=== PATIENT | female | born 1985 | race Caucasian/White ===

== ENCOUNTER 2021-05-09 16:11 | Inpatient (IN) | payer OTHER ==
[~2021-05-09] VITALS: Ht 157.5 cm; Wt 66.0 kg
--- NOTE | 2021-05-09 16:21 | NUR ---
PT BIB EMS FROM [place]. PT WENT TO ER THERE THIS MORNING FOR "FEELING TINGLY ALL OVER X 2 DAYS". PT WAS FOUND TO HAVE ROOM AIR SAT IN THE 70S. AND WAS PLACED ON HIGH FLOW + NON REBREATHER AND HER SAT WAS IN THE HIGH 80S TO 90. PT WAS FOUND TO HAVE CARDIOMEGALY AND A TROP OF 0.83. 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 PT RESTING IN IN [facility]. EKG COMPLETE. RT HAS PLACED PT ON OPTI FLOW AND HER SAT IS 90% NOW. BEDSIDE FOR ASSESMENT
--- NOTE | 2021-05-09 17:00 | NUR ---
REPORT FROM LISA, ASSUME CARE OF PT AT THIS TIME. PT STATES SHE'S FEELING BETTER, BREATHING EASIER AT THIS TIME. VS UPDATED IN COMPUTER. CALL LIGHT WITHIN REACH.
[2021-05-09] MEDS ORDERED: ENALAPRILAT 1.25 MG/ML, 2ML IVPush PRN (17:30)
[2021-05-09] MEDS ORDERED: ACETAMINOPHEN 325 MG TABLET PO PRN (17:30)
[2021-05-09] MEDS ORDERED: ONDANSETRON 2MG/ML, 2ML IVPush PRN (17:30)
[2021-05-09] MEDS ORDERED: ONDANSETRON ODT 4 MG PO PRN (17:30)
[2021-05-09] MEDS ORDERED: DOCUSATE 100 MG CAPSULE PO PRN (17:30)
[2021-05-09] MEDS ORDERED: GUAIFENESIN/COD200MG-20MG/10ML LIQUID PO PRN (17:30)
[2021-05-09] MEDS ORDERED: HYDROcodone/APAP 5/325 TABLET PO PRN (17:30)
[2021-05-09] MEDS ORDERED: DIPHENHYDRAMINE 25 MG CAPSULE PO PRN (17:30)
[2021-05-09] MEDS ORDERED: morphine SULFATE 10 MG/ML, 1ML IVPush PRN (17:30)
[2021-05-09] MEDS ORDERED: KETOROLAC 30 MG/1 ML IV PRN (17:30)
[2021-05-09 19:28] VITALS: BP 154/61
[2021-05-09] MEDS: CEFTRIAXONE 1,000 MG in DEXTROSE 5% 50 ML IVPB SCH (19:41)
[2021-05-09] MEDS: AZITHROMYCIN 500 MG in SODIUM CHLORIDE 0.9% 250 ML IV SCH (20:47)
[2021-05-09] MEDS: FAMOTIDINE 20 MG/2 ML IVPush SCH (20:47)
[2021-05-09] MEDS: ENOXAPARIN 40 MG/0.4 ML SQ SCH (20:47)
[2021-05-09] MEDS ORDERED: LORazepam 1MG TABLET PO ONE (21:00)
[2021-05-09 22:14] LABS: TROPONIN I 0.843 ng/mL (0.000-0.045)
[2021-05-10 00:03] VITALS: BP 148/70
[2021-05-10 05:28] LABS: BASOPHILS % (AUTO) 0 % (0-1); EOSINOPHILS % (AUTO) 0 % (1-7); LYMPHOCYTES % (AUTO) 17 % (22-44); MEAN CORPUSCULAR HEMOGLOBIN 29.4 pg (27.0-34.8); MEAN CORPUSCULAR HGB CONC 32.2 g/dL (32.4-35.8); MEAN PLATELET VOLUME 9.9 fL (7.4-10.4); MONOCYTES % (AUTO) 6 % (2-9); NEUTROPHILS % (AUTO) 77 % (42-75); PLATELET COUNT 180 x10^3/uL (130-400); RED BLOOD COUNT 5.31 x10^6/uL (3.82-5.3); RED CELL DISTRIBUTION WIDTH 23.7 % (9.6-15.2)
[2021-05-10 05:38] LABS: CHLORIDE 112 mmol/L (98-107)
[2021-05-10 05:48] LABS: ALANINE AMINOTRANSFERASE 19 U/L (12-78); ALBUMIN 2.9 g/dL (3.4-5.0); ALKALINE PHOSPHATASE 75 U/L (45-117); ANION GAP 10 mmol/L (5-15); BILIRUBIN,TOTAL 0.8 mg/dL (0.2-1.0); CALCIUM 8.3 mg/dL (8.5-10.1); CREATININE 1.05 mg/dL (0.55-1.02); TOTAL PROTEIN 6.3 g/dL (6.4-8.2); TROPONIN I 0.768 ng/mL (0.000-0.045)
[2021-05-10 08:47] VITALS: BP 145/93
[2021-05-10] MEDS: FAMOTIDINE 20 MG/2 ML IVPush SCH ×2 (10:24→20:48)
[2021-05-10] MEDS: DEXAMETHASONE 4 MG/ML, 1ML IVPush SCH (10:24)
[2021-05-10 13:56] VITALS: BP 134/85
[2021-05-10] MEDS: AZITHROMYCIN 500 MG in SODIUM CHLORIDE 0.9% 250 ML IV SCH (17:56)
[2021-05-10] MEDS: BUMETANIDE 1 MG TABLET PO SCH (18:25)
[2021-05-10 19:31] VITALS: BP 136/87
[2021-05-10] MEDS: CEFTRIAXONE 1,000 MG in DEXTROSE 5% 50 ML IVPB SCH (19:41)
[2021-05-10] MEDS: ENOXAPARIN 40 MG/0.4 ML SQ SCH (19:41)
[2021-05-10] MEDS: LORazepam 1MG TABLET PO PRN (21:48)
[2021-05-11] MEDS ORDERED: CITA20TA6 PO (00:20)
[2021-05-11 01:50] VITALS: BP 122/69
[2021-05-11 07:51] VITALS: BP 147/78
[2021-05-11] MEDS: SPIRONOLACTONE 25 MG TABLET PO SCH (09:45)
[2021-05-11] MEDS: BUMETANIDE 1 MG TABLET PO SCH (09:45)
[2021-05-11] MEDS: FAMOTIDINE 20 MG/2 ML IVPush SCH ×2 (09:46→20:32)
[2021-05-11] MEDS: DEXAMETHASONE 4 MG/ML, 1ML IVPush SCH (09:46)
[2021-05-11 14:00] VITALS: BP 135/91
[2021-05-11] MEDS: AZITHROMYCIN 500 MG in SODIUM CHLORIDE 0.9% 250 ML IV SCH (17:19)
[2021-05-11] MEDS: LORazepam 1MG TABLET PO PRN (17:52)
[2021-05-11] MEDS: ENOXAPARIN 40 MG/0.4 ML SQ SCH (19:33)
[2021-05-11] MEDS: CEFTRIAXONE 1,000 MG in DEXTROSE 5% 50 ML IVPB SCH (19:33)
[2021-05-11 19:57] VITALS: BP 131/89
[2021-05-11] MEDS: LOSARTAN 25MG TABLET PO SCH (20:32)
[2021-05-12 01:29] VITALS: BP 124/78
[2021-05-12 07:49] VITALS: BP 124/76
[2021-05-12] MEDS: DEXAMETHASONE 4 MG/ML, 1ML IVPush SCH (09:58)
[2021-05-12] MEDS: BUMETANIDE 1 MG TABLET PO SCH (09:59)
[2021-05-12] MEDS: LOSARTAN 25MG TABLET PO SCH ×2 (09:59→20:24)
[2021-05-12] MEDS: FAMOTIDINE 20 MG/2 ML IVPush SCH (10:00)
[2021-05-12] MEDS: SPIRONOLACTONE 25 MG TABLET PO SCH (10:00)
[2021-05-12 13:50] VITALS: BP 138/94
[2021-05-12] MEDS: AZITHROMYCIN 500 MG in SODIUM CHLORIDE 0.9% 250 ML IV SCH (18:17)
[2021-05-12] MEDS: CEFTRIAXONE 1,000 MG in DEXTROSE 5% 50 ML IVPB SCH (19:47)
[2021-05-12] MEDS: ENOXAPARIN 40 MG/0.4 ML SQ SCH (19:47)
[2021-05-12 20:10] VITALS: BP 129/86
[2021-05-12] MEDS: FAMOTIDINE 20 MG TABLET PO SCH (20:24)
[2021-05-13 02:00] VITALS: BP 131/86
[2021-05-13 05:40] LABS: BASOPHILS % (AUTO) 1 % (0-1); EOSINOPHILS % (AUTO) 0 % (1-7); LYMPHOCYTES % (AUTO) 19 % (22-44); MEAN CORPUSCULAR HGB CONC 32.2 g/dL (32.4-35.8); MEAN PLATELET VOLUME 10.1 fL (7.4-10.4); MONOCYTES % (AUTO) 7 % (2-9); NEUTROPHILS % (AUTO) 73 % (42-75); PLATELET COUNT 172 x10^3/uL (130-400); RED BLOOD COUNT 6.05 x10^6/uL (3.82-5.3); RED CELL DISTRIBUTION WIDTH 23.1 % (9.6-15.2)
[2021-05-13 05:55] LABS: ALBUMIN 2.7 g/dL (3.4-5.0); CALCIUM 8.3 mg/dL (8.5-10.1); CHLORIDE 107 mmol/L (98-107)
[2021-05-13 06:01] LABS: ALANINE AMINOTRANSFERASE 18 U/L (12-78); ALKALINE PHOSPHATASE 73 U/L (45-117); ANION GAP 5 mmol/L (5-15); BILIRUBIN,TOTAL 0.8 mg/dL (0.2-1.0); CREATININE 0.94 mg/dL (0.55-1.02)
[2021-05-13 07:37] VITALS: BP 150/97
[2021-05-13] MEDS: SPIRONOLACTONE 25 MG TABLET PO SCH (10:25)
[2021-05-13] MEDS: FAMOTIDINE 20 MG TABLET PO SCH ×2 (10:25→20:10)
[2021-05-13] MEDS: LOSARTAN 25MG TABLET PO SCH ×2 (10:26→20:10)
[2021-05-13] MEDS: BUMETANIDE 1 MG TABLET PO SCH (10:26)
[2021-05-13] MEDS: DEXAMETHASONE 4 MG/ML, 1ML IVPush SCH (10:26)
[2021-05-13 13:50] VITALS: BP 134/94
[2021-05-13] MEDS: LORazepam 1MG TABLET PO PRN (16:20)
[2021-05-13] MEDS: methylPREDNISolone SOD SUCC 40 MG/ML IV SCH (17:37)
[2021-05-13] MEDS: AZITHROMYCIN 500 MG in SODIUM CHLORIDE 0.9% 250 ML IV SCH (17:38)
[2021-05-13 19:18] VITALS: BP 125/87
[2021-05-13] MEDS: CEFTRIAXONE 1,000 MG in DEXTROSE 5% 50 ML IVPB SCH (19:31)
[2021-05-13] MEDS: ENOXAPARIN 40 MG/0.4 ML SQ SCH (19:32)
[2021-05-14] MEDS: methylPREDNISolone SOD SUCC 40 MG/ML IV SCH ×2 (00:51→09:03)
[2021-05-14 01:11] VITALS: BP 136/92
[2021-05-14 07:29] VITALS: BP 142/98
[2021-05-14] MEDS: FAMOTIDINE 20 MG TABLET PO SCH ×2 (09:02→20:32)
[2021-05-14] MEDS: SPIRONOLACTONE 25 MG TABLET PO SCH (09:03)
[2021-05-14] MEDS: BUMETANIDE 1 MG TABLET PO SCH (09:03)
[2021-05-14] MEDS: LOSARTAN 25MG TABLET PO SCH (09:03)
[2021-05-14 13:27] VITALS: BP 141/98
[2021-05-14] MEDS: ENOXAPARIN 40 MG/0.4 ML SQ SCH (18:31)
[2021-05-14 18:45] VITALS: BP 133/92
[2021-05-15 00:08] VITALS: BP 131/89
[2021-05-15 06:10] LABS: BASOPHILS % (AUTO) 0 % (0-1); EOSINOPHILS % (AUTO) 0 % (1-7); LYMPHOCYTES % (AUTO) 14 % (22-44); MEAN CORPUSCULAR HEMOGLOBIN 28.6 pg (27.0-34.8); MEAN CORPUSCULAR HGB CONC 32.1 g/dL (32.4-35.8); MEAN PLATELET VOLUME 10.2 fL (7.4-10.4); MONOCYTES % (AUTO) 6 % (2-9); NEUTROPHILS % (AUTO) 79 % (42-75); PLATELET COUNT 162 x10^3/uL (130-400); RED CELL DISTRIBUTION WIDTH 23.2 % (9.6-15.2)
[2021-05-15 06:15] LABS: ANION GAP 3 mmol/L (5-15); CALCIUM 8.5 mg/dL (8.5-10.1); CHLORIDE 108 mmol/L (98-107); CREATININE 1.03 mg/dL (0.55-1.02)
[2021-05-15 08:39] VITALS: BP 144/94
[2021-05-15] MEDS: SPIRONOLACTONE 25 MG TABLET PO SCH (08:43)
[2021-05-15] MEDS: BUMETANIDE 1 MG TABLET PO SCH (08:43)
[2021-05-15] MEDS: FAMOTIDINE 20 MG TABLET PO SCH (08:43)
[2021-05-15] MEDS ORDERED: LOSARTAN 100 MG TAB PO SCH (09:00)
[2021-05-15] MEDS ORDERED: SPIR25TA PO ×3 (12:28→12:29)
[2021-05-15] MEDS ORDERED: LOSA100T2 PO ×3 (12:28→12:29)
[2021-05-15] MEDS ORDERED: BUME1TAB21 PO ×3 (12:28→12:29)
[2021-05-15] MEDS ORDERED: PRED20TA PO ×3 (12:28→12:29)
[2021-05-15] MEDS ORDERED: CITA20TA6 PO (12:29)
[2021-05-15 13:53] VITALS: BP 125/87
== END 2021-05-15 14:04 | disposition left against medical advice (07) | DRG 280 ==
LOC: ED 16:31 → EDIP 17:17 → SUATTDRO 17:31 → 4WST 18:48
PROVIDERS: ADMIT Hospitalist; ATTEND Hospitalist
PROC: 5A0935A Assistance with Respiratory Ventilation, Less than 24 Consecutive Hours, High Flow/Velocity Cannula (ICD-10-PCS; principal; 2021-05-10)
DX: I21.A1 Myocardial infarction type 2 (principal); J18.9 Pneumonia, unspecified organism; J96.21 Acute and chronic respiratory failure with hypoxia; I31.3 Pericardial effusion (noninflammatory); F10.21 Alcohol dependence, in remission; F15.10 Other stimulant abuse, uncomplicated; F17.210 Nicotine dependence, cigarettes, uncomplicated; I27.20 Pulmonary hypertension, unspecified; Z20.822 Contact with and (suspected) exposure to COVID-19; I10 Essential (primary) hypertension; Z88.0 Allergy status to penicillin; Z53.29 Procedure and treatment not carried out because of patient's decision for other reasons
CPT/HCPCS: 36415; 71045; 80048; 80053; 83735; 84100; 84484; 85025; 93005; 93306; 96374; 96375; G0378; J0456; J0696; J1100; J1650; U0005; J2920; J7050; J7512; U0003

== ENCOUNTER 2021-06-24 00:36 | Inpatient (IN) | payer MEDICAID ==
[~2021-06-24] VITALS: Ht 162.6 cm; Wt 62.6 kg
[~2021-06-24 00:36] MED LIST: BUME1TAB21 PO; CITA20TA6 PO; LOSA100T2 PO; PRED20TA PO; SPIR25TA PO
[2021-06-24 01:05] LABS: BASOPHILS % (AUTO) 1 % (0-1); EOSINOPHILS % (AUTO) 4 % (1-7); LYMPHOCYTES % (AUTO) 30 % (22-44); MEAN CORPUSCULAR HEMOGLOBIN 29.4 pg (27.0-34.8); MEAN CORPUSCULAR HGB CONC 33.3 g/dL (32.4-35.8); MONOCYTES % (AUTO) 9 % (2-9); NEUTROPHILS % (AUTO) 57 % (42-75); PLATELET COUNT 170 x10^3/uL (130-400); RED BLOOD COUNT 4.76 x10^6/uL (3.82-5.3)
[2021-06-24 01:15] LABS: ALANINE AMINOTRANSFERASE 31 U/L (12-78); ANION GAP 11 mmol/L (5-15); CALCIUM 9.8 mg/dL (8.5-10.1); CHLORIDE 108 mmol/L (98-107)
[2021-06-24 01:19] LABS: ALKALINE PHOSPHATASE 79 U/L (45-117); BILIRUBIN,TOTAL 0.6 mg/dL (0.2-1.0); TOTAL PROTEIN 7.8 g/dL (6.4-8.2)
--- NOTE | 2021-06-24 01:52 | NUR ---
PT TO ROOM AT THIS TIME.
[2021-06-24] MEDS ORDERED: ASPIRIN 81 MG TABLET CHEW PO ONE (03:00)
[2021-06-24] MEDS ORDERED: MELATONIN 5 MG TABLET PO PRN (04:00)
[2021-06-24] MEDS ORDERED: POLYETHYLENE GLYCOL 17 GM PACKET PO PRN (04:00)
[2021-06-24] MEDS ORDERED: GUAIFENESIN/DM 200-20MG, 10ML UDC PO PRN (04:00)
[2021-06-24] MEDS ORDERED: LABETALOL 5MG/ML, 20ML IVPush PRN (04:00)
[2021-06-24] MEDS ORDERED: ACETAMINOPHEN 500 MG TABLET PO PRN (04:00)
[2021-06-24] MEDS ORDERED: LORazepam 2 MG/ML, 1ML IVPush PRN (04:00)
[2021-06-24] MEDS ORDERED: morphine SULFATE 10 MG/ML, 1ML IVPush PRN (04:00)
[2021-06-24] MEDS ORDERED: ONDANSETRON 2MG/ML, 2ML IVPush PRN (04:00)
[2021-06-24] MEDS ORDERED: LORazepam 2 MG/ML, 1ML ONE (04:04)
[2021-06-24] MEDS ORDERED: ASPIRIN 81 MG TABLET CHEW ONE (04:05)
[2021-06-24 04:20] LABS: TROPONIN I 0.075 ng/mL (0.000-0.045)
[2021-06-24 04:34] LABS: FREE T4 (FREE THYROXINE) 1.14 ng/dL (0.76-1.46)
[2021-06-24 05:12] VITALS: BP 97/53
[2021-06-24] MEDS ORDERED: FURO40TA6 PO (05:26)
[2021-06-24] MEDS: ENOXAPARIN 40 MG/0.4 ML SQ SCH (05:51)
[2021-06-24 08:11] VITALS: BP 95/62
[2021-06-24] MEDS ORDERED: BUMETANIDE 1 MG TABLET PO SCH (09:00)
[2021-06-24] MEDS: CITALOPRAM 20 MG TABLET PO SCH (09:00)
[2021-06-24 09:30] VITALS: BP 108/68
[2021-06-24] MEDS: SPIRONOLACTONE 25 MG TABLET PO SCH (09:31)
[2021-06-24 10:49] LABS: TROPONIN I 0.058 ng/mL (0.000-0.045)
[2021-06-24 13:03] VITALS: BP 103/69
[2021-06-24] MEDS: FUROSEMIDE 40 MG TABLET PO SCH (13:31)
[2021-06-24 18:06] LABS: AMPHETAMINE SCREEN, URINE Negative (Negative); BARBITURATE SCREEN, URINE Negative (Negative); BENZODIAZEPINE SCREEN, URINE Negative (Negative); CANNABINOID SCREEN, URINE Negative (Negative); COCAINE SCREEN, URINE Negative (Negative); METHADONE SCREEN, URINE Negative (Negative); OPIATE SCREEN, URINE Negative (Negative)
[2021-06-24 20:00] VITALS: BP 101/67
[2021-06-25 04:27] VITALS: BP_SYST 92; BP_SYST 95; BP_DIAS 60; BP_DIAS 64
[2021-06-25] MEDS: ENOXAPARIN 40 MG/0.4 ML SQ SCH (04:34)
[2021-06-25 05:25] LABS: BASOPHILS % (AUTO) 1 % (0-1); EOSINOPHILS % (AUTO) 9 % (1-7); LYMPHOCYTES % (AUTO) 36 % (22-44); MEAN CORPUSCULAR HGB CONC 33.2 g/dL (32.4-35.8); MONOCYTES % (AUTO) 10 % (2-9); NEUTROPHILS % (AUTO) 45 % (42-75); PLATELET COUNT 158 x10^3/uL (130-400); RED BLOOD COUNT 4.67 x10^6/uL (3.82-5.3)
[2021-06-25 05:29] LABS: ANION GAP 10 mmol/L (5-15); CALCIUM 9.3 mg/dL (8.5-10.1); CHLORIDE 109 mmol/L (98-107); CREATININE 1.61 mg/dL (0.55-1.02)
[2021-06-25] MEDS: SPIRONOLACTONE 25 MG TABLET PO SCH (10:10)
[2021-06-25] MEDS: CITALOPRAM 20 MG TABLET PO SCH (10:11)
[2021-06-25] MEDS: FUROSEMIDE 40 MG TABLET PO SCH (12:10)
== END 2021-06-25 12:40 | disposition home or self-care (01) | DRG 194 ==
LOC: ED 01:59 → EDIP 03:36 → 5SO 04:54
PROVIDERS: ADMIT Internal Medicine; ATTEND Internal Medicine
DX: I11.0 Hypertensive heart disease with heart failure (principal); N17.0 Acute kidney failure with tubular necrosis; J96.11 Chronic respiratory failure with hypoxia; I21.A1 Myocardial infarction type 2; I95.9 Hypotension, unspecified; I42.9 Cardiomyopathy, unspecified; I27.20 Pulmonary hypertension, unspecified; I50.33 Acute on chronic diastolic (congestive) heart failure; R79.89 Other specified abnormal findings of blood chemistry; R94.6 Abnormal results of thyroid function studies; F15.90 Other stimulant use, unspecified, uncomplicated; I49.3 Ventricular premature depolarization; Z87.891 Personal history of nicotine dependence; Z88.0 Allergy status to penicillin
CPT/HCPCS: 36415; 71045; 71250; 80048; 80053; 80307; 83880; 84439; 84443; 84484; 84703; 85025; 93005; 93308; 93321; 93325; 96374; 99291; G0378; J1650; J2060

== ENCOUNTER 2021-06-29 11:32 | Day surgery (SDC) | payer MEDICAID ==
[~2021-06-29] VITALS: Ht 162.6 cm; Wt 59.1 kg
[~2021-06-29 11:32] MED LIST changes: +FURO40TA6 PO
[2021-06-29] MEDS ORDERED: SODIUM CHLORIDE 0.9% 1,000 ML IV SCH (12:30)
[2021-06-29] MEDS ORDERED: DIPHENHYDRAMINE 50 MG/ML, 1ML IVPush ONE (12:30)
[2021-06-29 12:36] VITALS: BP 124/70
[2021-06-29] MEDS ORDERED: DIPHENHYDRAMINE 50 MG/ML, 1ML ONE (12:46)
[2021-06-29] MEDS ORDERED: MIDAZOLAM 1 MG/ML, 2ML ONE (14:52)
[2021-06-29] MEDS ORDERED: FENTANYL PF 100 MCG/2ML ONE (14:52)
[2021-06-29] MEDS ORDERED: LIDOCAINE-MPF 2% ,5ML ONE (14:55)
[2021-06-29] MEDS ORDERED: METOPROLOL 1 MG/ML, 5ML ONE (15:11)
== END 2021-06-29 16:50 | disposition home or self-care (01) ==
LOC: CACL 11:32
PROVIDERS: ATTEND Internal Medicine Cardiovascular Disease
DX: I27.20 Pulmonary hypertension, unspecified (principal); F10.21 Alcohol dependence, in remission; F15.90 Other stimulant use, unspecified, uncomplicated; Z88.0 Allergy status to penicillin; Z88.8 Allergy status to other drugs, medicaments and biological substances; Z87.891 Personal history of nicotine dependence; Z79.899 Other long term (current) drug therapy
CPT/HCPCS: 82803; 93451; 99156; 99157; C1769; C1894; J1200; J2250; J3010